=== PATIENT | male | born 1985 | race Caucasian/White ===

== ENCOUNTER 2018-03-09 11:49 | Emergency (ER) | payer SELFPAY ==
[2018-03-09 13:19] LABS: BILIRUBIN,URINE NEGATIVE (NEGATIVE); GLUCOSE, URINE (UA) NEGATIVE (NEGATIVE); KETONES,URINE (UA) NEGATIVE (NEGATIVE); LEUKOCYTE ESTERASE, URINE NEGATIVE (NEGATIVE); NITRITE,URINE NEGATIVE (NEGATIVE); OCCULT BLOOD,URINE NEGATIVE (NEGATIVE); PROTEIN,URINE NEGATIVE (NEGATIVE); UROBILINOGEN,URINE 0.2 (NORMAL) E.U./dL (NORMAL)
[2018-03-09 13:22] LABS: CLARITY,URINE CLEAR (CLEAR)
[2018-03-09 14:15] LABS: BASOPHILS % (AUTO) 0.5 %; EOSINOPHILS # (AUTO) 0.1 10^3/uL (0.0-0.7); EOSINOPHILS % (AUTO) 1.8 %; HGB - HEMOGLOBIN 16.5 g/dL (14.0-18.0); LYMPHOCYTES # (AUTO) 1.2 10^3/uL (1.5-3.5); LYMPHOCYTES % (AUTO) 17.9 %; MEAN CORPUSCULAR HEMOGLOBIN 30.2 pg (27.0-31.0); MEAN CORPUSCULAR HGB CONC 34.7 g/dL (32.0-36.0); MEAN PLATELET VOLUME 8.5 fL (7.4-11.4); MONOCYTES # (AUTO) 0.4 10^3/uL (0.0-1.0); MONOCYTES % (AUTO) 5.8 %; NEUTROPHILS # (AUTO) 4.8 10^3/uL (1.5-6.6); PLT - PLATELET COUNT 194 10^3/uL (130-450); RED BLOOD COUNT 5.46 10^6/uL (4.70-6.10); RED CELL DISTRIBUTION WIDTH 14.1 % (12.0-15.0); WHITE BLOOD COUNT 6.5 x10^3/uL (4.8-10.8)
[2018-03-09 14:25] LABS: ALBUMIN 4.6 g/dL (3.2-5.5); ALBUMIN/GLOBULIN RATIO 1.6 (1.0-2.2); BILIRUBIN,TOTAL 1.1 mg/dL (0.2-1.0); CALCIUM 9.2 mg/dL (8.5-10.3); CREATININE 0.9 mg/dL (0.6-1.2); TOTAL PROTEIN 7.5 g/dL (6.7-8.2)
[2018-03-09] MEDS ORDERED: ACETAMINOPHEN 325 MG TABLET PO STA (15:25)
--- NOTE | 2018-03-09 15:55 | ED Physician Documentation ---
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 denies: Vomiting, Diarrhea : reports: Testicular pain Endocrine: denies: Easy bruising / bleeding Immunocompromised: denies: Immunocompromised PD PAST MEDICAL HISTORY - Present Medications Home Medications: Ambulatory Orders Medication Instructions Recorded Confirmed No Known Home Medications [No 03/09/18 03/09/18 Known Home Medications] - Allergies Allergies/Adverse Reactions: Allergies Allergy/AdvReac Type Severity Reaction Status Date / Time No Known Drug Allergies Allergy Verified 03/09/18 12:18 PD ED PE NORMAL - Vitals Vital signs reviewed: Yes - Cardiac Cardiac: RRR - Respiratory Respiratory: No respiratory distress - Abdomen Abdomen: Soft, Other (TTP LLQ) - Male Male : Other (TTP inguinal, some fullness a external ring with cough, testicle nl lie, no mass, but tender, no lesions or dc) Results - Vitals Vitals: Vital Signs - 24 hr 03/09/18 03/09/18 12:12 16:50 Temperature 36.4 C L 36.6 C Heart Rate 52 L 56 L Respiratory 16 15 Rate Blood Pressure 113/75 110/65 O2 Saturation 100 99 Oxygen O2 Source Room air - Labs Labs: Laboratory Tests 03/09/18 03/09/18 03/09/18 12:52 14:08 14:08 WBC 6.5 RBC 5.46 Hgb 16.5 Hct 47.5 MCV 87.0 MCH 30.2 MCHC 34.7 RDW 14.1 Plt Count 194 MPV 8.5 Neut # (Auto) 4.8 Lymph # (Auto) 1.2 L [place] # (Auto) 0.4 Eos # (Auto) 0.1 Baso # (Auto) 0.0 Absolute Nucleated RBC 0.00 Nucleated RBC % 0.0 Sodium 137 Potassium 4.3 Chloride 102 Carbon Dioxide 27 Anion Gap 8.0 BUN 15 Creatinine 0.9 Estimated GFR (MDRD) 97 Glucose 104 H Calcium 9.2 Total Bilirubin 1.1 H AST 17 ALT 22 Alkaline Phosphatase 60 Total Protein 7.5 Albumin 4.6 Globulin 2.9 Albumin/Globulin Ratio 1.6 Lipase 24 Urine Color YELLOW Urine Clarity CLEAR Urine pH 6.0 Ur Specific [place] 1.015 Urine Protein NEGATIVE Urine Glucose (UA) NEGATIVE Urine Ketones NEGATIVE Urine Occult Blood NEGATIVE Urine Nitrite NEGATIVE Urine Bilirubin NEGATIVE Urine Urobilinogen 0.2 (NORMAL) Ur Leukocyte Esterase NEGATIVE Ur Microscopic Review NOT INDICATED Urine Culture Comments NOT INDICATED - Rads (name of study) testicular sono Radiology: See rad report (no torsion, no abscess, no hydrocele) PD MEDICAL DECISION MAKING - ED course ED course: exam most c/w reducible hernia but with mild testicular pain as well so checked sono and no torsion torsion could come and go but given more TTP at external ring and sx worse with lifting feel the hx and PE and reassuring sono are adequate to rule out torsion and does not need transfer to tertiary care for urology - Sepsis Event Vital Signs: Vital Signs - 24 hr 03/09/18 03/09/18 12:12 16:50 Temperature 36.4 C L 36.6 C Heart Rate 52 L 56 L Respiratory 16 15 Rate Blood Pressure 113/75 110/65 O2 Saturation 100 99 Oxygen O2 Source Room air Departure - Departure Disposition: 01 Home, Self Care Clinical Impression: Inguinal hernia Qualifiers: Obstruction and gangrene presence: without obstruction or gangrene Laterality: unilateral Recurrence: non-recurrent Qualified Code(s): K40.90 - Unilateral inguinal hernia, without obstruction or gangrene, not specified as recurrent Condition: Good Instructions: ED Hernia Inguinal Follow-Up: Evaristo Miles MD [Provider Admit Priv/Credential] - (call to schedule an appointment to fix the hernia) Print Language: [place] Comments: The ultrasound of the testicle was fine. I think this pain is due to a hernia You need to follow up with the surgeon to discuss getting the hernia repaired. In the meantime, avoid lifting more than 20 lbs and take motrin and/or tylenol as needed for the pain If the pain come back and is severe and is not relieved by laying down and applying an ice pack and gentle pressure to the area, please come back to the ER right away Forms: Activity restrictions
--- NOTE | 2018-03-09 16:11 | Ultrasound Report ---
Procedure Date: 03/09/2018 Accession Number: [id number] / [id number] Procedure: US - Testicle w/Doppler Limited CPT Code: FULL RESULT: EXAM: Testicle w/Doppler Limited DATE: 03/09/2018 4:04 PM CLINICAL HISTORY: int L testicular / scrotal pain COMPARISON: None. TECHNIQUE: Real-time scanning was performed with static images obtained, including color-flow. FINDINGS: Right: Testis: 4.4 x 2.8 x 2.2 cm. Normal size and echotexture. No mass or abnormal blood flow. Note is made of a punctate calcification of doubtful clinical significance. Epididymis: 2.1 x 0.6 x 0.6 cm. Normal size and echotexture. No mass or abnormal blood flow. Epididymal head cyst, 0.4 cm. Hydrocele: None. Varicocele: None. Left: Testis: 3.2 x 2.8 x 2.0 cm. Normal size and echotexture. No mass or abnormal blood flow. Note is made of calcification, scant and focal and of doubtful clinical significance. Epididymis: 2.9 x 0.3 x 0.4 cm. Normal size and echotexture. No mass or abnormal blood flow. Hydrocele: None. Varicocele: None. IMPRESSION: No evidence of testicular torsion, hydrocele or abscess. [facility]
[2018-03-09 18:20] VITALS: BP 104/78
[2018-03-09] MEDS ORDERED: MECLIZINE 12.5 MG TABLET PO STA (18:41)
== END 2018-03-09 18:56 | disposition home or self-care (01) ==
LOC: ED 11:49
DX: K40.90 Unilateral inguinal hernia, without obstruction or gangrene, not specified as recurrent (principal)
CPT/HCPCS: 36415; 76870; 80053; 81003; 83690; 85025; 93976; 99283; A9270; 81001; 87086